=== PATIENT | male | born 1950 | race Caucasian/White ===

== ENCOUNTER 2017-03-12 05:53 | Day surgery (SDC) | payer BC, OTHER ==
--- NOTE | 2016-12-28 11:22 | HP ---
DATE OF SURGERY: 03/12/2017 BRIEF HISTORY: This is a 66-year-old gentleman whom I met in April of 2016. At that time, he was noted to have bilateral inguinal hernias and was recommended to undergo repair. The patient was scheduled for surgery but did not follow through with it due to personal issues. The patient states the right sided hernia has gotten larger since I last saw him. The left-sided hernia is essentially unchanged. He still has discomfort in the left groin region. This is exacerbated by bending or Valsalva-type maneuvers. He has no pain or discomfort on the right side. PAST MEDICAL HISTORY: No coronary disease, hypertension or diabetes. The patient has a history of atrial fibrillation that had resolved. He is currently on aspirin. PAST SURGICAL HISTORY: None. MEDICATIONS: Aspirin and vitamins. SOCIAL HISTORY: The patient is retired. He neither smokes nor drinks. PHYSICAL EXAMINATION: Lungs: Clear. Heart: Regular rhythm. Abdomen: Soft, nontender, nondistended. He has bilateral inguinal hernias noted, left slightly greater than the right. Both hernias are reducible. Both scrotum and testicles are within normal limits. IMPRESSION/PLAN: Bilateral inguinal hernias, left greater than right, in this 66-year-old gentleman symptomatic from a left inguinal hernia. I had initially seen him in April of 2016 and since that time, the right-sided hernia has gotten much larger. The patient is here today for bilateral inguinal herniorrhaphy with mesh. The indications, alternatives and complications were discussed. The possibilities of seroma were discussed as well. We will plan to obtain written consent today for this surgery. Marguerite LEGER [id number] cc: Izzy Lopez M.D. MTDDenia
[2017-03-09 10:47] VITALS: BMI 26.6
[2017-03-12] MEDS ORDERED: TAMSULOSIN HCL 0.4 MG CAP.ER.24H (FP) ONE (06:32)
[2017-03-12] MEDS ORDERED: LEVOFLOXACIN 500 MG IVPB 100 ML IVPB ONE (06:33)
[2017-03-12] MEDS ORDERED: MIDAZOLAM HCL 2 MG/2 ML SINGLE DOSE VIAL ONE (07:25)
[2017-03-12] MEDS ORDERED: DEXAMETHASONE SOD PHOSPHATE/PF 10 MG/ML SDV ONE (07:26)
[2017-03-12] MEDS ORDERED: ROCURONIUM BROMIDE 50 MG/5 ML VIAL ONE (07:58)
[2017-03-12] MEDS ORDERED: PROPOFOL 20 ML ONE ×3 (07:58→08:12)
[2017-03-12] MEDS ORDERED: ONDANSETRON 4 MG/2 ML VIAL ONE (08:12)
[2017-03-12] MEDS ORDERED: DEXAMETHASONE SOD PHOSPHATE 4 MG/1 ML VIAL ONE (08:12)
[2017-03-12] MEDS ORDERED: SUCCINYLCHOLINE CHLORIDE 200 MG/10 ML VIAL ONE (08:14)
[2017-03-12] MEDS ORDERED: NEOSTIGMINE METHYLSULFATE 0.5 MG/ML - 10 ML MDV ONE (08:53)
--- NOTE | 2017-03-12 10:43 | OP ---
DATE OF OPERATION: 03/12/2017 PREOPERATIVE DIAGNOSIS: Bilateral inguinal hernias. POSTOPERATIVE DIAGNOSIS: Bilateral inguinal hernias. PROCEDURE: Bilateral laparoscopic inguinal herniorrhaphy with mesh. SURGEON: Pasha Pearson MD CUSHION PADDER: Sarwat Pike DO ANESTHESIA: Ewa Louis MD (general) OPERATIVE FINDINGS: Left side was pantaloon inguinal hernia, incarcerated, with the right component containing fat. Right side was a slightly larger defect in the direct inguinal space; also, a pantaloon inguinal hernia. The right side was incarcerated, containing fat as well. INDICATIONS FOR PROCEDURE: This is a 66-year-old gentleman who has had bilateral inguinal hernias. The patient is becoming increasingly symptomatic from these hernias and now is here for operative repair. Refer to my H&P for complete details. DESCRIPTION OF PROCEDURE: Patient identified and appropriately positioned on the operating room table. After placement of general anesthesia, the abdomen was prepped and draped in the usual sterile fashion with ChloraPrep. An infraumbilical incision was made and deepened through the subcutaneous tissue. The fascia of the rectus muscle on the right identified, divided sharply. The muscles split under direct vision. Dissector balloon followed by a structural balloon placed. Also, under direct vision, a suprapubic 11-mm port placed. The following structures on the right side identified: Pubic tubercle, Romario ligament, inferior epigastric vessels, spermatic cord, and lateral abdominal wall. During this dissection, the patient was noted to have a direct inguinal hernia containing fat. This reduced back in the preperitoneal space with blunt dissection. He had a moderate-sized, indirect inguinal hernia sac which was reduced back as well. The peritonotomy was closed with a 10-mm clip coremaker experimental. A 4.5 x 6 piece of Versatex mesh was keel placed through the suprapubic port site. The mesh wrapped around the cord structures laterally to reconstruct the internal ring. Laterally, the mesh anchored to the anterior abdominal wall and lateral abdominal wall. Medially, the mesh anchored to the anterior abdominal wall, pubic tubercle and Romario ligament. Upon completion of the right side, similar structures on the left side identified. On the left side, he had similar findings with a direct inguinal hernia containing fat. This was reduced back in the preperitoneal space. He had a small, indirect inguinal hernia sac which was reduced back in the preperitoneal space as well. Another 4.5 x 6 piece of Versatex mesh was keel placed through the suprapubic port site. The mesh wrapped around the cord structures laterally to reconstruct the internal ring. Laterally, the mesh anchored to the anterior abdominal wall and lateral abdominal wall. Medially, the mesh well overlapped in the midline, anchored to the anterior abdominal wall, pubic tubercle, and Romario ligament. Due to the generosity of the direct space and future expansion, I decided to place a third piece of mesh in the preperitoneal space, lying freely to cover the direct space up just to the level just below the umbilicus. The operative field was examined, noted to be hemostatic. The ports were removed. Port site is hemostatic. All anterior abdominal wall and lateral abdominal anchors placed under direct counter- palpation. The anchoring system used was the ReliaTack. The fascia at the umbilical port site and suprapubic port site reapproximated with interrupted 0 Vicryl suture. All skin closed with 4-0 subcuticular Biosyn, followed by Dermabond. At the conclusion of the case, sponge and needle counts were correct. ATTESTATION: A brief operative note handwritten on the preprinted form. [place] queried prior to giving any narcotics. PASHA PEARSON M.D. [id number] MTDD
[2017-03-12] MEDS ORDERED: ONDANSETRON 4 MG/2 ML VIAL IVPUSH PRN (11:04)
[2017-03-12] MEDS ORDERED: oxyCODONE HCL 5 MG TABLET PO PRN (11:04)
[2017-03-12] MEDS ORDERED: LACTATED RINGERS SOLUTION 1,000 ML IV SCH (11:15)
[2017-03-12] MEDS ORDERED: oxyCODONE HCL 5 MG TABLET ONE (12:21)
[2017-03-12 17:09] VITALS: BP 124/70; PULSE 65; TEMP 97.9
== END 2017-03-12 17:10 | disposition home or self-care (01) ==
LOC: FASU 05:53
PROVIDERS: ATTEND Surgery
PROC: 0YUA4JZ Supplement Bilateral Inguinal Region with Synthetic Substitute, Percutaneous Endoscopic Approach (ICD-10-PCS; principal; 2017-03-12 07:56)
DX: K40.20 Bilateral inguinal hernia, without obstruction or gangrene, not specified as recurrent (principal)
CPT/HCPCS: 94760